=== PATIENT | female | born 1970 | race Hispanic/Latino ===

== ENCOUNTER 2017-11-09 07:12 | Outpatient (CLI) | payer BC ==
--- NOTE | 2017-11-09 10:11 | XRay Report ---
XRAY LEFT KNEE 4 THREE VIEWS: 11/09/17 CLINICAL: Left knee pain. FINDINGS: Small medial and lateral osteophytes with normal joint spaces. Patellofemoral joint osteophytes.No joint effusion.No fracture or dislocation. Normal soft tissues. IMPRESSION: Moderate osteoarthritis.
== END 2017-11-09 07:13 | disposition home or self-care (01) ==
LOC: SPVIMAG 07:12
PROVIDERS: ATTEND Orthopaedic Surgery
DX: M17.12 Unilateral primary osteoarthritis, left knee (principal)